=== PATIENT | female | born 1945 | race Caucasian/White ===

== ENCOUNTER 2021-03-25 12:00 | Outpatient (CLI) | payer MEDICARE, MEDICAID ==
[2021-03-14 16:25] LABS: BASOPHILS # (AUTO) 0.1 X10'3 (0-0.2); BASOPHILS % (AUTO) 1.2 % (0-1); EOSINOPHILS # (AUTO) 0.3 X10'3 (0-0.9); EOSINOPHILS % (AUTO) 4.8 % (0-6); LYMPHOCYTES # (AUTO) 1.6 X10'3 (1.1-4.8); LYMPHOCYTES % (AUTO) 27.2 % (21-51); MEAN CORPUSCULAR HEMOGLOBIN 31.5 PG (27.0-31.0); MEAN CORPUSCULAR HGB CONC 34.1 g/dL (33.0-36.5); MEAN CORPUSCULAR VOLUME 92.3 FL (78-98); MEAN PLATELET VOLUME 7.6 FL (7.4-10.4); MONOCYTES # (AUTO) 0.4 X10'3 (0-0.9); MONOCYTES % (AUTO) 6.1 % (2-12); NEUTROPHILS # (AUTO) 3.6 X10'3 (1.8-7.7); NEUTROPHILS % (AUTO) 60.7 % (42-75); PRE OP HEMATOCRIT 41.8 % (35.0-45.0); PRE OP HEMOGLOBIN 14.3 g/dL (12.0-16.0); PRE OP PLATELET COUNT 216 X10'3 (140-440); RED BLOOD COUNT 4.53 X10'6 (4.20-5.60); RED CELL DISTRIBUTION WIDTH 14.1 % (11.5-14.5)
[2021-03-14 16:32] LABS: ALBUMIN/GLOBULIN RATIO 1.2 (1.1-1.5); ALKALINE PHOSPHATASE 85 IU/L (46-116); BLOOD UREA NITROGEN 11 MG/DL (7-18); BUN/CREATININE RATIO 14.3 (6.6-38.0); CALCIUM 9.5 MG/DL (8.5-10.1); CHLORIDE 106 MMOL/L (99-107); CREATININE 0.77 MG/DL (0.40-0.90); PRE OP ALT 33 U/L (30-65); PRE OP ANION GAP 6 (8-16); PRE OP AST 24 U/L (10-37); PRE OP BILIRUB, TOTAL 0.2 MG/DL (0.0-1.0); PRE OP GLUCOSE 127 MG/DL (70-104); PRE OP POTASSIUM 3.8 MMOL/L (3.4-5.1); PRE OP SODIUM 141 MMOL/L (135-145); TOTAL CARBON DIOXIDE 28.6 MMOL/L (24-32); TOTAL PROTEIN 7.4 G/DL (6.4-8.2); eGFR 73 ML/MIN
[~2021-03-25] VITALS: Ht 154.9 cm; Wt 56.7 kg
[~2021-03-25 12:00] MED LIST: ACET-3068 PO; ATOR20TA66 PO; CHOL100017 PO; ESCI20TA39 PO; GABA800T11 PO; MODA200T48 PO; TRAZ-251 PO; cefazolin/dext.iso 2gm/50ml IV ONE; famotidine 20mg tablet PO ONE; ringers solution, lacted 1,000 ML IV SCH
== END 2021-03-25 23:59 | disposition home or self-care (01) ==
LOC: LAB 12:00
PROVIDERS: ATTEND Podiatrist Foot & Ankle Surgery
DX: M25.375 Other instability, left foot (principal); M25.372 Other instability, left ankle; M20.42 Other hammer toe(s) (acquired), left foot; M21.6X2 Other acquired deformities of left foot; M25.373 Other instability, unspecified ankle; M77.42 Metatarsalgia, left foot; M20.40 Other hammer toe(s) (acquired), unspecified foot; M20.41 Other hammer toe(s) (acquired), right foot; M77.41 Metatarsalgia, right foot; M79.671 Pain in right foot; M79.672 Pain in left foot; Z72.0 Tobacco use; Z20.822 Contact with and (suspected) exposure to COVID-19
CPT/HCPCS: 36415; 71046; 80053; 85025; 93005; J0690; J7120; U0003; U0005

== ENCOUNTER 2021-04-29 05:53 | Day surgery (SDC) | payer MEDICARE, MEDICAID ==
[2021-04-22 11:07] LABS: BASOPHILS # (AUTO) 0.1 X10'3 (0-0.2); EOSINOPHILS # (AUTO) 0.2 X10'3 (0-0.9); EOSINOPHILS % (AUTO) 3.2 % (0-6); LYMPHOCYTES # (AUTO) 1.3 X10'3 (1.1-4.8); LYMPHOCYTES % (AUTO) 19.6 % (21-51); MEAN CORPUSCULAR HEMOGLOBIN 31.1 PG (27.0-31.0); MEAN CORPUSCULAR HGB CONC 34.5 g/dL (33.0-36.5); MEAN CORPUSCULAR VOLUME 90.4 FL (78-98); MEAN PLATELET VOLUME 7.7 FL (7.4-10.4); MONOCYTES # (AUTO) 0.4 X10'3 (0-0.9); MONOCYTES % (AUTO) 5.1 % (2-12); NEUTROPHILS # (AUTO) 4.8 X10'3 (1.8-7.7); NEUTROPHILS % (AUTO) 71.1 % (42-75); PRE OP HEMATOCRIT 41.3 % (35.0-45.0); PRE OP HEMOGLOBIN 14.2 g/dL (12.0-16.0); PRE OP PLATELET COUNT 205 X10'3 (140-440); RED BLOOD COUNT 4.58 X10'6 (4.20-5.60); RED CELL DISTRIBUTION WIDTH 12.8 % (11.5-14.5)
[2021-04-22 11:16] LABS: CLARITY,URINE CLOUDY (Clear); COLOR,URINE YELLOW (Yellow); GLUCOSE, URINE NEGATIVE (Neg); KETONES,URINE NEGATIVE (Neg); LEUKOCYTE ESTERASE ,URINE SMALL (Neg); NITRITES, URINE NEGATIVE (Neg); OCCULT BLOOD,URINE TRACE-INTACT (Neg); PH,URINE 6.5 (4.8-8.0); PROTEIN,URINE NEGATIVE (Neg); UA COLLECTION TYPE NON-SPECIFIED; UROBILINOGEN,URINE 0.2 E.U/dL (0.2-1.0)
[2021-04-22 11:48] LABS: SQUAMOUS EPITHELIAL CELL,UR MODERATE /LPF (FEW)
[2021-04-22 11:49] LABS: RBC,URINE 0-2 /HPF (0-2); WBC,URINE 0-4 /HPF (0-4)
[2021-04-22 11:53] LABS: BACTERIA,URINE 2+ /HPF (Neg)
[2021-04-22 11:58] LABS: ALBUMIN 4.1 G/DL (3.4-5.0); ALBUMIN/GLOBULIN RATIO 1.6 (1.1-1.5); ALKALINE PHOSPHATASE 85 IU/L (46-116); BLOOD UREA NITROGEN 14 MG/DL (7-18); BUN/CREATININE RATIO 19.4 (6.6-38.0); CALCIUM 9.1 MG/DL (8.5-10.1); CHLORIDE 105 MMOL/L (99-107); CREATININE 0.72 MG/DL (0.40-0.90); PRE OP ALT 28 U/L (30-65); PRE OP ANION GAP 11 (8-16); PRE OP AST 27 U/L (10-37); PRE OP BILIRUB, TOTAL 0.3 MG/DL (0.0-1.0); PRE OP GLUCOSE 85 MG/DL (70-104); PRE OP POTASSIUM 4.3 MMOL/L (3.4-5.1); PRE OP SODIUM 144 MMOL/L (135-145); TOTAL CARBON DIOXIDE 28.1 MMOL/L (24-32); TOTAL PROTEIN 6.6 G/DL (6.4-8.2); eGFR 79 ML/MIN
[~2021-04-29] VITALS: Ht 154.9 cm; Wt 56.7 kg
[2021-04-29] VITALS (11 sets, daily range): BP systolic 109–139; BP diastolic 55–71
[2021-04-29] MEDS ORDERED: fentaNYL/PF 50MCG/1 ML 2ML syringe ONE (07:03)
[2021-04-29] MEDS ORDERED: midazolam 1 mg/ML 2ml injection ONE (07:03)
[2021-04-29] MEDS ORDERED: ROPIVAcaine 0.5% (5mg/ml) 30ml vial ONE (07:06)
[2021-04-29] MEDS ORDERED: dexamethasone sod phosphate 4mg/ml inj. ONE (07:07)
[2021-04-29] MEDS ORDERED: BUPIVAcaine 0.5% inj/PF 30 ML ONE (07:07)
[2021-04-29] MEDS ORDERED: bacitracin 15gm ointment TP ONE (07:07)
[2021-04-29] MEDS ORDERED: labetalol 20mg/4ml (5mg/ml) syringe IV PRN (07:10)
[2021-04-29] MEDS ORDERED: hydrALAZINE 20mg/ml inj. IV PRN (07:10)
[2021-04-29] MEDS ORDERED: ringers solution, lacted 1,000 ML IV SCH (07:10)
[2021-04-29] MEDS ORDERED: ondansetron/PF 4mg/2ml inj IV PRN (07:10)
[2021-04-29] MEDS ORDERED: fentaNYL/PF 50MCG/1 ML 2ML syringe IV PRN ×2 (07:10)
[2021-04-29] MEDS ORDERED: morphine 4 MG/ML inj SYRINge IV PRN (07:10)
[2021-04-29] MEDS ORDERED: morphine 2 MG/ML inj. syringe IV PRN (07:10)
[2021-04-29] MEDS ORDERED: ePHEDrine 50MG/ML INJ. ONE (07:33)
[2021-04-29] MEDS ORDERED: ketorolac trometh. 30mg/ml inj. ONE (09:05)
[2021-04-29] MEDS ORDERED: acetaminophen 1,000mg/100ml IV 100 ML IV ONE (09:06)
--- NOTE | 2021-04-29 09:25 | NUR ---
Received from OR via [facility], accompanied by Anesthesiologist DR PARDO and report given by Anesthesiologist. PT DROWSY, DENIES PAIN. LEFT FOOT/ANKLE W/JAMES WRAP COVERING, TOES W/K-WIRES 2ND -, SCANT AMT OF DRAINAGE. BOOT ON AND IN PLACE. Addendum: 04/29/21 at 0923 by Ivon Martinez RN Amended: Links added.
--- NOTE | 2021-04-29 11:25 | NUR ---
ASSISTING PT TO GET OOB, ONCE PT PLACED HER LEFT FOOT ON THE FLOOR IT BEGAN BLEEDING, APPROXIMATELY 50 ML'S OF BLOOD, PLACED LLE BACK ON BED, BLEEDING SLOWED DOWN. CALL INTO DR SWAIN AND INFORMED. ORDERS TO REINFORCE RA. I PLACED 4X4'S OVER THE ORIGINAL JAMES WRAP W/ADDITIONAL JAMES WRAP. BLEEDING HAD STOPPED ONCE PTS LEG WAS PLACED BACK ON THE. BED. PT AGAIN ASSISTED TO [facility] [place], PT WAS ABLE TO VOID, NO BLEEDING NOTED. PT STEADY USING WALKER, PT STATES SHE HAS ONE AT HOME.D/C INSTRUCTIONS GIVEN AND GONE OVER W/PT AND PTS DAUGHTER WHO VERBALIZED UNDERSTANDING. PT D'CD TO HOME VIA W/C TO PRIVATE VEHICLE W/O INCIDENT. Addendum: 04/29/21 at 1245 by Ivon Martinez RN Amended: Links added.
--- NOTE | 2021-04-29 11:25 | NUR ---
PT GETTING UP OOB TO VOID AND LEFT FOOT STARTED BLEEDING, APPROXIMATELY 50 CCS
== END 2021-04-29 11:25 | disposition home or self-care (01) ==
LOC: PAS 05:53
PROVIDERS: ATTEND Podiatrist Foot & Ankle Surgery
DX: M20.32 Hallux varus (acquired), left foot (principal); M24.575 Contracture, left foot; M20.42 Other hammer toe(s) (acquired), left foot; M25.375 Other instability, left foot; G89.18 Other acute postprocedural pain; J44.9 Chronic obstructive pulmonary disease, unspecified; G47.30 Sleep apnea, unspecified; G89.29 Other chronic pain; F31.9 Bipolar disorder, unspecified; F41.9 Anxiety disorder, unspecified; F17.210 Nicotine dependence, cigarettes, uncomplicated; E78.00 Pure hypercholesterolemia, unspecified; Z79.899 Other long term (current) drug therapy; Z72.89 Other problems related to lifestyle; Z96.651 Presence of right artificial knee joint; Z98.890 Other specified postprocedural states; Z88.8 Allergy status to other drugs, medicaments and biological substances; Z20.822 Contact with and (suspected) exposure to COVID-19
CPT/HCPCS: 28270; 28285; 28760; 36415; 64447; 64450; 73620; 76000; 80053; 81001; 82948; 85025; 87088; A6223; C1713; J0131; J0690; J1100; J1885; J2250; J2795; J3010; J3490; J7030; J7120; S0020; U0003; U0005; Z7506; Z7508; Z7512; A4215; A4618; A6449; A7000